=== PATIENT | female | born 1965 | race Two or more races ===

== ENCOUNTER 2023-08-24 07:37 | Emergency (ER) | payer OTHER ==
[~2023-08-24] VITALS: Ht 167.6 cm; Wt 70.3 kg
[2023-08-24] MEDS ORDERED: CRESTOR20 MG PO (07:45)
[2023-08-24] MEDS ORDERED: LOSARTAN POTAS100 MG PO (07:45)
[2023-08-24] MEDS ORDERED: LUNESTA3 MG (07:46)
[2023-08-24] MEDS ORDERED: PRISTIQ ER50 MG PO (07:46)
[2023-08-24] MEDS ORDERED: ADULT LOW DOSE81 M1 (07:46)
[2023-08-24] MEDS ORDERED: PROMETRIUM200 MG (07:47)
[2023-08-24] MEDS ORDERED: PEPCID AC10 MG (07:47)
[2023-08-24] MEDS ORDERED: PROTONIX20 MG (07:47)
[2023-08-24 09:15] LABS: HEMATOCRIT 36.9 % (36.0-45.00); MEAN CELL VOLUME 84.1 fL (80.00-100.00); MEAN CORPUSCULAR HEMOGLOBIN 29.6 pg (27.00-32.0); MEAN CORPUSCULAR HGB CONC 35.2 g/dl (32.0-36.0); PLATELET COUNT 241 K/uL (150-450); RED BLOOD COUNT 4.39 M/uL (4.00-6.00)
[2023-08-24 09:39] LABS: ALBUMIN 3.9 gm/dL (3.4-5.0); BILIRUBIN TOTAL 0.71 mg/dL (0.3-1.2); CALCIUM 8.9 mg/dL (8.5-10.1); CREATININE SERUM 0.85 mg/dL (0.55-1.02); GFR 68.94; GLOBULINA 3.4 G/DL (2.4-3.5); POTASSIUM 3.59 mEq/L (3.5-5.1); TOTAL PROTEIN 7.3 gm/dL (6.4-8.2)
== END 2023-08-24 14:29 | disposition home or self-care (01) ==
LOC: ER 07:38
PROVIDERS: Emergency Medicine
DX: R10.9 Unspecified abdominal pain (principal); Z88.8 Allergy status to other drugs, medicaments and biological substances; K76.0 Fatty (change of) liver, not elsewhere classified